=== PATIENT | female | born 1985 | race Caucasian/White ===

== ENCOUNTER 2018-05-04 05:10 | Inpatient (IN) | payer SELFPAY ==
[2018-05-04] MEDS ORDERED: fentaNYL 100 MCG/2 ML INJ IV ONE (06:30)
[2018-05-04] MEDS ORDERED: LIDOCAINE 1% 300 MG/30 ML SDV SC PRN (06:36)
[2018-05-04] MEDS ORDERED: LR 1,000 ML IV PRN (06:36)
[2018-05-04] MEDS ORDERED: IBUPROFEN 600 MG TAB PO PRN (06:36)
[2018-05-04] MEDS ORDERED: OXYTOCIN/RINGERS LACTATE 1,000 ML IV PRN (06:36)
[2018-05-04] MEDS ORDERED: OLIVE OIL 118 ML BTL MISC PRN (06:36)
[2018-05-04] MEDS ORDERED: MISOPROSTOL 200 MCG TAB PR PRN (06:36)
[2018-05-04] MEDS ORDERED: EPSOM SALT 454 GM TP PRN (06:36)
[2018-05-04] MEDS ORDERED: SIMETHICONE 80 MG TAB CHEW PO PRN (07:04)
[2018-05-04] MEDS ORDERED: DOCUSATE SODIUM 100 MG CAP PO PRN (07:04)
[2018-05-04] MEDS ORDERED: HYDROCORTISONE 0.5% CREAM TP PRN (07:04)
--- NOTE | 2018-05-04 07:11 | OBDEL ---
Info Type: Vaginal Presentation at Delivery: Vertex L&D Analgesia/Anesthesia Type: None GBS+: No Intrapartum Medications: Discontinued Medications Generic Name Dose Route Start Last Admin Trade Name Venkatesh PRN Reason Stop Dose Admin Fentanyl 50 mcg 05/04/18 06:30 05/04/18 06:23 Sublimaze IV 05/04/18 06:31 50 mcg ONCE ONE Administration Indications for Delivery: Spontaneous Labor Vaginal Delivery - Delivery Provider Delivery Physician/CNM: Chelly Beauchamp - Labor and Delivery Onset of Contractions Date: 05/04/18 Onset of Contractions Time: 02:00 Onset of Contractions Type: Spontaneous Rupture of Membranes Date: 05/04/18 Rupture of Membranes Time: 04:00 Rupture of Membranes Type: Spontaneous Amniotic Fluid Color: Clear Dilation Complete Date: 05/04/18 Dilation Complete Time: 05:15 Placenta Delivery Date: 05/04/18 Placenta Delivery Time: 05:59 Total Hours of Labor: 3 Laceration: 2nd Degree Repair: 3-0, Vicryl Vaginal Sponge Count Correct: Yes Vaginal Needle Count Correct: Yes Vaginal Sweep Performed: No EBL: 200 Delivery Events: None Delivery Comment: patient delivered precipitously by RN shortly after arrival to [facility]. I delivered placenta and repaired perineal laceration when I arrived. She had a left labial laceration that was hemostatic although I recommended repairing - she declined repair of that laceration. Data ABBY: 05/15/18 Gestational Age: 38 week(s) and 3 day(s) [place] Delivery Date: 05/04/18 Delivery Time: 05:40 Sex of : Male Score (1 Min): 8 Score (5 Min): 9 ICD10 Worksheet Patient Problems: Problems Problem Status Onset Precipitous delivery Acute Vaginal delivery Acute - ICD10 Problem Qualifiers (1) Vaginal delivery (2) Precipitous delivery
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
[2018-05-04] MEDS ORDERED: fentaNYL 100 MCG/2 ML INJ IVP ONE (07:21)
[2018-05-04 07:33] LABS: PLATELET COUNT 307 10^3/uL (150-400)
[2018-05-04] MEDS ORDERED: MEASLES,MUMPS&RUBELLA VACC/PF 0.5 ML VIAL SC ONE (08:04)
[2018-05-04] MEDS: IBUPROFEN 600 MG TAB PO PRN ×2 (13:38→20:12)
[2018-05-04] MEDS: HYDROCODONE/APAP 5/325 TAB PO PRN (20:12)
[2018-05-05] MEDS: HYDROCODONE/APAP 5/325 TAB PO PRN (00:22)
[2018-05-05] MEDS: IBUPROFEN 600 MG TAB PO PRN ×3 (02:21→14:50)
[2018-05-05 08:26] VITALS: BP 86/53
[2018-05-05] MEDS ORDERED: MEASLES,MUMPS&RUBELLA VACC/PF 0.5 ML VIAL SC ONE (11:23)
[2018-05-05] MEDS ORDERED: TDAP ADULT 0.5 ML INJ (BOOSTRIX) IM ONE (11:23)
--- NOTE | 2018-05-05 11:29 | OBGCSDC ---
General Delivery Information - General Info : 2 Para: 0 Abortions: 1 Type: Vaginal L&D Analgesia/Anesthesia Type: None Admission Date: 05/04/18 Labs: Patient ABO/Rh A POSITIVE 05/04/18 06:30 Hct 34.7 % (38.0-47.0) L 05/04/18 06:30 - Hospital Course : 05/05/18 11:27 S) Pt doing well, reports min pain and bleeding. she is ambulating and voiding without difficulty. She is . She desires discharge home today. O) VSS, afebrile constitutional: WNF, A&Ox3 HEENT: normocephalic, atraumatic, supple Heart: RRR, No murmur Chest: CTA-B Breasts: soft, nontender, not engorged, nipples normal/intact Abdomen: Soft, nontender Uterus: Firm at U-2 Lochia: Minimal rubra Perineum: Intact, healing well Extremities: Trace edema, and negative Richar's sign Neuro: Grossly normal A) 32-year-old [id number] S/P PPD#2 P) Discharge home today Continue Pelvic rest [id number] Discussed danger signs (infection, preeclampsia, depression, heavy bleeding, etc ) RTO in 2/4/6 weeks 05/05/18 11:28 Vaginal - Delivery Provider Delivery Physician/CNM: Chelly Beauchamp - Diagnosis Labor: Spontaneous Rupture of Membranes Type: Spontaneous Amniotic Fluid Color: Clear Laceration: 2nd Degree Repair: 3-0, Vicryl Delivery Events: None - Delivery EBL: 200 Data ABBY: 05/15/18 Gestational Age: 38 week(s) and 4 day(s) [place] Delivery Date: 05/04/18 Delivery Time: 05:40 Sex of : Male Score (1 Min): 8 Score (5 Min): 9 Discharge Information - Discharge Information Prescriptions: Ibuprofen [Motrin (*)] 600 mg PO Q6HRS PRN #30 tab PRN Reason: Pain, Mild Able To Take Po Condition: Good
== END 2018-05-05 15:30 | disposition home or self-care (01) | DRG 807 ==
LOC: FLD 05:10 → FOB 09:40
PROVIDERS: ADMIT Advanced Practice Midwife; ATTEND Advanced Practice Midwife
DX: O70.1 Second degree perineal laceration during delivery (principal); O62.3 Precipitate labor; Z3A.38 38 weeks gestation of pregnancy; Z63.0 Problems in relationship with spouse or partner; Z37.0 Single live birth
CPT/HCPCS: 80305; G0008; J3010